=== PATIENT | female | born 1975 | race African-American/Black ===

== ENCOUNTER 2021-06-08 12:45 | Emergency (ER) | payer OTHER ==
[2021-06-08 13:23] VITALS: BP 156/98; PULSE 74; TEMP 97.9; BMI 35.2
== END 2021-06-08 15:32 | disposition home or self-care (01) ==
LOC: JER 12:45
DX: M25.572 Pain in left ankle and joints of left foot (principal); W19.XXXA Unspecified fall, initial encounter; Y92.9 Unspecified place or not applicable
CPT/HCPCS: 73564-TC-LT-FY; 73610-TC-LT-FY; 73630-TC-LT; 99284-25

== ENCOUNTER → 2023-05-02 | Day surgery (SDC) | payer OTHER | END | disposition home or self-care (01) | LOC: FMAMMOTONE 10:53 | PROVIDERS: ATTEND Surgery | PROC: 0HBU3ZX Excision of Left Breast, Percutaneous Approach, Diagnostic (ICD-10-PCS; principal; 2023-05-02) | DX: Z53.8 Procedure and treatment not carried out for other reasons (principal); R92.8 Other abnormal and inconclusive findings on diagnostic imaging of breast | CPT/HCPCS: 19081 ==